=== PATIENT | female | born 1965 | race Two or more races ===

== ENCOUNTER 2024-11-16 12:05 | Emergency (ER) | payer OTHER ==
[~2024-11-16] VITALS: Ht 154.9 cm; Wt 83.9 kg
[2024-11-16] MEDS ORDERED: LOSARTAN POTAS100 MG PO (12:32)
[2024-11-16] MEDS ORDERED: ROSUVASTATIN CA40 MG PO (12:32)
[2024-11-16] MEDS ORDERED: ATORVASTATIN CA80 MG PO (12:32)
[2024-11-16] MEDS ORDERED: EZETIMIBE10 MG PO (12:33)
[2024-11-16] MEDS ORDERED: METOPROLOL SUCC25 MG PO (12:33)
[2024-11-16] MEDS ORDERED: KETOROLAC TROMETHAMINE 60 MG VIAL IM STA (16:32)
[2024-11-16] MEDS ORDERED: ORPHENADRINE CITRATE 30 MG/ML AMPUL IM STA (16:33)
[2024-11-16] MEDS ORDERED: DEXAMETHASONE SODIUM PHOSPHATE 4 MG/ML VIAL IM STA (16:33)
[2024-11-16] MEDS ORDERED: ORPHENADRINE CITRATE 30 MG/ML AMPUL ONE (16:35)
[2024-11-16] MEDS ORDERED: KETOROLAC TROMETHAMINE 60 MG VIAL IM ONE (16:35)
[2024-11-16] MEDS ORDERED: DEXAMETHASONE SODIUM PHOSPHATE 4 MG/ML VIAL ONE (16:35)
== END 2024-11-16 16:59 | disposition home or self-care (01) ==
LOC: ER 12:05
DX: M54.59 Other low back pain (principal)
CPT/HCPCS: 96372; 99282; J1100; J1885; J2360